=== PATIENT | male | born 1955 | race Caucasian/White ===

== ENCOUNTER 2020-04-30 13:58 | Outpatient (CLI) | payer BC, SELFPAY ==
[2020-04-30 14:38] LABS: Blood Urea Nitrogen 18 mg/dL (9-20); Calcium 8.9 mg/dL (8.4-10.2); Carbon Dioxide 28 mmol/L (22-30); Chloride 99 mmol/L (98-107); Estimated Glomerular Filt Rate > 60; Glucose 119 mg/dL (75-110); Potassium 4.3 mmol/L (3.4-5.0); Sodium 137 mmol/L (137-145)
== END 2020-04-30 13:59 | disposition home or self-care (01) ==
PROVIDERS: Anesthesiology; PCP Internal Medicine; Visit Provider Surgery
DX: E11.9 Type 2 diabetes mellitus without complications (principal)
CPT/HCPCS: 36415; 80048

== ENCOUNTER 2020-05-07 00:57 | Outpatient (CLI) | payer BC, SELFPAY ==
[2020-05-07 18:07] LABS: SARS-CoV-2 RNA PCR Negative
== END 2020-05-07 00:58 | disposition home or self-care (01) ==
LOC: ANHCOVIDDT 00:57
PROVIDERS: PCP Internal Medicine; Visit Provider Surgery
DX: Z01.812 Encounter for preprocedural laboratory examination (principal); Z11.59 Encounter for screening for other viral diseases
CPT/HCPCS: 87635; C9803; U0003

== ENCOUNTER 2020-05-09 01:39 | Day surgery (SDC) | payer BC, SELFPAY ==
[2020-04-29 14:31] VITALS: BMI 28.1
--- NOTE | 2020-05-09 09:39 | ECG_ITS ---
Measurements Intervals [place] Rate: 76 P: 51 [place]: 155 QRS: 53 QRSD: 99 T: 56 QT: 382 QTc: 430 Interpretive Statements SINUS RHYTHM INCOMPLETE RIGHT BUNDLE BRANCH BLOCK BORDERLINE ECG Electronically Signed On 05-09-2020 12:51:02 CDT by Frank Arredondo D.O.
--- NOTE | 2020-05-09 09:54 | WPDANESEPPF ---
Anes - Initial Pre Proc Eval Procedure: Operation Date: 05/09/20 11:30 Proposed Procedures p Open Right Inguinal Hernia Repair Adult - Mario Alberto Akhtar MD Date/Time: 05/09/20 09:54 Surgeon: Mario Alberto Akhtar MD Pre Op Diagnosis: Right Inguinal Hernia Patient Data Age: 64 Gender: M Height: 5 ft 7 in Weight: 81.65 kg Allergies Allergy/AdvReac Type Severity Reaction Status Date / Time No Known Allergies Allergy Verified 04/29/20 14:07 Home Medications Medication Instructions Recorded Confirmed Type aspirin 81 mg tablet,delayed 81 mg PO DAILY 10/02/19 04/29/20 History release blood-glucose meter #1 each 10/02/19 04/14/20 Rx citalopram 20 mg tablet 20 mg PO DAILY 10/02/19 04/29/20 History ezetimibe 10 mg tablet 10 mg PO DAILY 10/02/19 04/29/20 History fluticasone propionate 50 1 spray NASAL HS 10/02/19 04/29/20 History mcg/actuation nasal spray,suspension multivitamin 1 tablet PO DAILY 10/02/19 04/29/20 History rosuvastatin 40 mg tablet 40 mg PO DAILY 10/02/19 04/29/20 History fluticasone furoate 100 1 inhalation INHALATION DAILY #3 10/25/19 04/29/20 Rx mcg-vilanterol 25 mcg/dose each inhalation powder lancets 33 gauge #100 each 11/30/19 04/14/20 Rx empagliflozin 10 mg tablet 10 mg PO QAM #90 tablet 01/02/20 04/29/20 Rx alirocumab 75 mg/mL subcutaneous 75 mg SUB-Q Q14D #6 ml 02/04/20 04/29/20 Rx pen injector allopurinol 300 mg tablet 300 mg PO DAILY #90 tablet 03/03/20 04/29/20 Rx metoprolol succinate 25 mg 25 mg PO DAILY #90 tablet 03/03/20 04/29/20 Rx tablet,extended release 24 hr omeprazole 20 mg capsule,delayed 20 mg PO DAILY #90 cap 04/01/20 04/29/20 Rx release icosapent ethyl [Vascepa] 1 gm PO BID 04/29/20 04/29/20 History metformin 1,000 mg PO BID 04/29/20 04/29/20 History Patient hx anesthesia problems: none Family hx anesthesia problems: none [facility] Past Medical History Medical History ASHD (arteriosclerotic heart disease) Benign essential hypertension BMI 28.0-28.9,adult BMI 29.0-29.9,adult BMI 30.0-30.9,adult BMI 31.0-31.9,adult COPD (chronic obstructive pulmonary disease) Diabetes Elevated homocysteine Encounter for routine adult health examination with abnormal findings Encounter for routine adult health examination without abnormal findings Encounter for special screening examination for neoplasm of prostate Follow up Hyperlipidemia Labral tear of long head of left biceps tendon On long term care administrator drug therapy MICAH on CPAP Pre-diabetes Pyogenic granuloma Right groin pain Right inguinal hernia Rotator cuff tear arthropathy of left shoulder Vitamin D deficiency Surgical History Surgical History History of heart bypass surgery 4 in 1998 5 in 1982 S/P TAVR (transcatheter aortic valve replacement) Family History Family History Mother Carcinoma of colon Patient's mother is Father Acute myocardial infarction Patient's father is Other Diabetes mellitus Family history of cardiovascular disease Family history of heart disease in male family member before age 55 Social History Social History Smoking status: Never smoker Second hand tobacco smoke exposure: No Alcohol intake: current Drinks per week: 7 Spiritual care concerns: No Anes - Eval Final PreProcedure Day of Procedure 05/09/20 09:54 Patient weight: overweight Heart: regular rate and rhythm Lungs: clear to auscultation Airway: Mallampati scale class III Neurological: alert and oriented Last oral intake: >/= 8 hours ASA classification: III Emergent: no Anesthetic plan: proceed Anesthesia type and monitoring: general GIVS and standard monitoring Informed Consent: The patient's anesthetic plan and its attendant risks and benefits were
[2020-05-09] MEDS: LACTATED RINGERS 1,000 ML 30 ML IV CONT ×2 (10:20→13:30)
[2020-05-09 10:27] LABS: Glucose Point of Care 95 (65-105)
[2020-05-09] MEDS: ACETAMINOPHEN 500 MG TABLET 1000 MG PO (10:27)
[2020-05-09] MEDS: KETOROLAC 15 MG/ML VIAL (*BKC) IV PUSH (10:30)
[2020-05-09 10:34] VITALS: BP 137/71; PULSE 73; TEMP 36.7; O2SAT 98
--- NOTE | 2020-05-09 10:50 | WPDHPUPDATE1 ---
History and Physical Update Update Date/Time: 05/09/20 10:50 History and Physical has been reviewed, including an updated exam of the patient. There are NO changes in the patient's condition. Risks, benefits, and alternatives have been discussed and questions answered. Patient agrees to proceed with procedure.
[2020-05-09] MEDS: ceFAZolin 2 GM/D5W 50 ML 2 GM/50 ML BAG IVPB (10:55)
[2020-05-09 12:10] VITALS: BP 111/61; PULSE 76; RESP 12; TEMP 36.3; O2SAT 93
--- NOTE | 2020-05-09 12:13 | P.OP_ITS ---
Procedure Note - Detailed Date of procedure: 05/09/20 Pre-op diagnosis: Right Inguinal Hernia Right inguinal hernia Post-op diagnosis: other (Direct hernia) Procedure performed: Repair of Right inguinal hernia with 8 cm Parietex hernia mesh system Description of procedure: The patient was taken to surgery and IV sedation was administered. The right groin and genitalia were prepped and draped. Proposed incision was marked on the skin. Local was infiltrated into the skin and the deeper subcutaneous tissues. Incision was made and deepened through the subcutaneous. Crossing veins were cauterized and divided. Dissection was carried through Lorena's fascia down to the external oblique aponeurosis. The aponeurosis was exposed as was the external ring. Additional local anesthesia was infiltrated deep to the aponeurosis in the area of the spermatic cord and inguinal canal contents. The aponeurosis was opened laterally and extended medially through the external ring. The leaves of the aponeurosis were diss ected free from the spermatic cord. The ileoinguinal nerve was carefully preserved throughout the dissection and was left attached to the spermatic cord. The cord was then mobilized medially on a Glasco drain. The cord was dissected back to the internal ring. Dissection was then carried out the hernia sac from the cord. This was a direct hernia with a wide base. It occupied most of the direct space. It was dissected back to its neck. The hernia sac was scored through the transversalis fascia circumferentially just above the neck. The sac was dunked into the retroperitoneum. An 8 centimeter Parietex [place] was chosen. It was folded to form a plug. It was placed in the defect. The edges were sutured to the transversalis fascia with interrupted 3 0 Vicryl suture. The hernia defect was then partially closed with some additional 3 0 Vicryl suture. Patch was then cut to the appropriate size and placed over the inguinal canal floor. The lateral leaves were passed beyond the cord. The cord and ileoinguinal nerve were then laid over the patch. The external oblique aponeurosis was closed with interrupted 3 0 Vicryl suture. Lorena's fascia was closed with interrupted 3 0 Vicryl suture. The subcutaneous was closed with interrupted 4 0 Vicryl suture. Four 0 Vicryl subcuticular skin sutures were placed. The skin was closed finally with a running 4 0 Monocryl skin suture. The wound was dressed with Exofin surgical adhesive. The patient was awakened and taken to recovery in good condition. Sponge and needle counts were correct x2. Anesthesia: MAC and local (0.5% Marcaine with Exparel) Surgeon: Mario Alberto Akhtar MD Predator Control Trapper: Opal GILL Estimated blood loss (mL): 5 Drains: No Packing: No Pathology: none sent Complications: None Condition: stable Disposition: same day Findings: Direct inguinal hernia. No sliding hernia was noted.
[2020-05-09 12:40] VITALS: BP 124/67; PULSE 71; RESP 14
[2020-05-09 13:15] VITALS: BP 117/60; PULSE 70; RESP 14
[2020-05-09 13:45] VITALS: BP 124/58; PULSE 70; RESP 18
[2020-05-09 14:10] VITALS: BP 119/60; PULSE 66; RESP 18
[2020-05-09 17:02] LABS: Glucose Point of Care 100 (65-105)
== END 2020-05-09 14:26 | disposition home or self-care (01) ==
PROVIDERS: PCP Internal Medicine; Visit Provider Surgery
PROC: (CPT 49505; principal; 2020-05-09 11:30)
DX: K40.90 Unilateral inguinal hernia, without obstruction or gangrene, not specified as recurrent (principal); I25.10 Atherosclerotic heart disease of native coronary artery without angina pectoris; E78.5 Hyperlipidemia, unspecified; E11.9 Type 2 diabetes mellitus without complications; J44.9 Chronic obstructive pulmonary disease, unspecified; G47.33 Obstructive sleep apnea (adult) (pediatric); E55.9 Vitamin D deficiency, unspecified; Z79.84 Long term (current) use of oral hypoglycemic drugs; Z79.82 Long term (current) use of aspirin; Z95.1 Presence of aortocoronary bypass graft; Z95.4 Presence of other heart-valve replacement
CPT/HCPCS: 49505; 93005; A9270; C1781; C9290; J0690; J1885; J2250; J2704; J3010; J7120

== ENCOUNTER 2020-07-16 10:11 | Outpatient (CLI) | payer BC, SELFPAY ==
[2020-07-16 10:43] LABS: Anion Gap 8 mmol/L (8-16); Blood Urea Nitrogen 15 mg/dL (9-20); Calcium 9.5 mg/dL (8.4-10.2); Carbon Dioxide 29 mmol/L (22-30); Chloride 100 mmol/L (98-107); Estimated Glomerular Filt Rate > 60; Glucose 84 mg/dL (75-110); Potassium 4.5 mmol/L (3.4-5.0); Sodium 137 mmol/L (137-145)
== END 2020-07-16 10:12 | disposition home or self-care (01) ==
LOC: ANHSURGERY 10:12
PROVIDERS: Anesthesiology; PCP Internal Medicine; Visit Provider Orthopaedic Surgery
DX: R73.03 Prediabetes (principal); Z01.812 Encounter for preprocedural laboratory examination
CPT/HCPCS: 36415; 80048

== ENCOUNTER 2020-07-18 00:30 | Outpatient (CLI) | payer BC, SELFPAY ==
[2020-07-18 17:08] LABS: SARS-CoV-2 RNA PCR Negative
== END 2020-07-18 00:31 | disposition home or self-care (01) ==
LOC: ANHCOVIDDT 00:32
PROVIDERS: PCP Internal Medicine; Visit Provider Orthopaedic Surgery
DX: Z01.812 Encounter for preprocedural laboratory examination (principal); Z20.828 Contact with and (suspected) exposure to other viral communicable diseases
CPT/HCPCS: 87635; C9803; U0003

== ENCOUNTER 2020-07-21 01:47 | Day surgery (SDC) | payer BC, SELFPAY ==
[2020-07-15 13:38] VITALS: BMI 28.1
[2020-07-21] VITALS (13 sets, daily range): BP systolic 104–166; BP diastolic 64–88; PULSE 72–94; RESP 9–18; TEMP 36.2–36.3; O2SAT 91–98
--- NOTE | 2020-07-21 07:15 | WPDHPUPDATE1 ---
History and Physical Update Update Date/Time: 07/21/20 07:15 History and Physical has been reviewed, including an updated exam of the patient. There are NO changes in the patient's condition. Covid test negative. Risks, benefits, and alternatives have been discussed and questions answered. Patient agrees to proceed with procedure.
[2020-07-21] MEDS: KETOROLAC 15 MG/ML VIAL (*BKC) IV PUSH (07:58)
[2020-07-21] MEDS: ACETAMINOPHEN 500 MG TABLET 1000 MG PO (07:58)
[2020-07-21] MEDS: LACTATED RINGERS 1,000 ML 30 ML IV CONT (08:00)
[2020-07-21 08:30] LABS: Glucose Point of Care 111 (65-105)
--- NOTE | 2020-07-21 08:40 | WPDANESEPPF ---
Anes - Initial Pre Proc Eval Procedure: Operation Date: 07/21/20 09:30 Proposed Procedures p Left Shoulder Arthroscopy With Debridement, Rotator Cuff Repair, Bicep Repair, Open Distal Clavicle Excision, Possible Open Rotator Cuff Repair - Mohan Lesile MD Date/Time: 07/21/20 08:40 Surgeon: Mohan Leslie MD Pre Op Diagnosis: Left Rotator Cuff Tear/ Should Pain/Biceps Tendoni Patient Data Age: 64 Gender: M Height: 5 ft 7 in Weight: 81.65 kg Last Vital Signs Temp 36.2 C L 07/21/20 08:33 Pulse 76 07/21/20 08:33 Resp 18 07/21/20 08:33 BP 141/66 H 07/21/20 08:33 Pulse Ox 98 07/21/20 08:33 Allergies Allergy/AdvReac Type Severity Reaction Status Date / Time No Known Allergies Allergy Verified 07/21/20 08:32 Home Medications Medication Instructions Recorded Confirmed Type aspirin 81 mg tablet,delayed 81 mg PO DAILY 10/02/19 07/21/20 History release blood-glucose meter #1 each 10/02/19 07/21/20 Rx ezetimibe 10 mg tablet 10 mg PO DAILY 10/02/19 07/21/20 History multivitamin 1 tablet PO DAILY 10/02/19 07/21/20 History fluticasone furoate 100 1 inhalation INHALATION DAILY #3 10/25/19 07/21/20 Rx mcg-vilanterol 25 mcg/dose each inhalation powder lancets 33 gauge #100 each 11/30/19 07/21/20 Rx alirocumab 75 mg/mL subcutaneous 75 mg SUB-Q Q14D #6 ml 02/04/20 07/21/20 Rx pen injector allopurinol 300 mg tablet 300 mg PO DAILY #90 tablet 03/03/20 07/21/20 Rx metoprolol succinate 25 mg 25 mg PO DAILY #90 tablet 03/03/20 07/21/20 Rx tablet,extended release 24 hr omeprazole 20 mg capsule,delayed 20 mg PO DAILY #90 cap 04/01/20 07/21/20 Rx release Vascepa 1 gm PO BID 04/29/20 07/21/20 History metformin 1,000 mg PO BID 04/29/20 07/21/20 History citalopram 20 mg tablet 20 mg PO DAILY #90 tablet 06/05/20 07/21/20 Rx rosuvastatin 40 mg tablet 40 mg PO DAILY #90 tablet 06/05/20 07/21/20 Rx empagliflozin 10 mg tablet 10 mg PO QAM #90 tablet 07/09/20 07/21/20 Rx Laboratory Tests 07/21/20 08:05 POC Capillary Glucose 111 mg/dl H mg/dl (65-105) Patient hx anesthesia problems: none Family hx anesthesia problems: none PMFSH Past Medical History Medical History Acromioclavicular joint arthritis Arthritis ASHD (arteriosclerotic heart disease) Benign essential hypertension BMI 28.0-28.9,adult BMI 29.0-29.9,adult BMI 30.0-30.9,adult BMI 31.0-31.9,adult COPD (chronic obstructive pulmonary disease) Diabetes Elevated homocysteine Emphysema of lung Encounter for routine adult health examination with abnormal findings Encounter for routine adult health examination without abnormal findings Encounter for special screening examination for neoplasm of prostate Follow up Hearing loss High cholesterol Hyperlipidemia Hypertension Labral tear of long head of left biceps tendon On retirement drug therapy MICAH on CPAP Pre-diabetes Last A1C updated 05/06/20: 6.7 Pyogenic granuloma Right groin pain Right inguinal hernia Rotator cuff tear arthropathy of left shoulder Rotator cuff tear, left Sleep apnea Vitamin D deficiency Surgical History Surgical History History of heart bypass surgery 4 in 1998 5 in 1982 History of right inguinal hernia repair 05/09/20 S/P TAVR (transcatheter aortic valve replacement) Family History Family History Mother Carcinoma of colon Patient's mother is Father Acute myocardial infarction Patient's father is Other Diabetes mellitus Family history of cardiovascular disease Family history of heart disease in male family member before age 55 Social History Social History Smoking status: Never smoker Second hand tobacco smoke exposure: No Alcohol intake: current Drinks per week: 7 Spiritual care concer
--- NOTE | 2020-07-21 09:23 | WPDANESPNB ---
Anes - Peripheral Nerve Block Date/Time: 07/21/20 09:23 I have discussed with the patient/family/POA the placement of a peripheral nerve block for post-operative pain management, including associated risks, benefits, complications, and side effects. Alternative methods of post-operative analgesia were detailed. Questions were solicited and answers provided to the satisfaction of the patient/family/POA. Time-Out: A pre-procedural Time-Out was completed immediately before starting the procedure and confirmed: Patient Identification, Site, Procedure, Patient Position and the Availability of Requisite Equipment. Clinical Indications: Acute post-operative pain management requested by the operative surgeon. Nerve Block Insertion Note Anes-nerve block: interscalene left Patient position: supine Skin prep: chlorhexidine Needle: 22 gauge, stimulating, insulated echogenic needle. Needle length: 50 mm Technique: ultrasound Injectate: bupivacaine 0.5% with epi 5 mcg/ml (30) and dexamethasone (mg) (8) Observations: tolerated well Complications: none Procedure start time:: 909 Procedure end time:: 919
[2020-07-21] MEDS: ceFAZolin 2 GM/D5W 50 ML 2 GM/50 ML BAG IVPB (09:31)
--- NOTE | 2020-07-21 11:50 | PM.PROC ---
Procedure Note - Detailed Date of procedure: 07/21/20 Pre-op diagnosis: Left Rotator Cuff Tear/ Should Pain/Biceps Tendoni Post-op diagnosis: same Procedure performed: Left shoulder arthroscopy with debridement, biceps tenotomy, open distal clavicle excision and subacromial decompression. Description of procedure: Indications: Patient is a 64-year-old gentleman with left shoulder pain. Ultrasound shows rotator cuff tear, biceps tendinitis and degenerative changes. He has failed conservative care with physical therapy, home exercises, activity modification, injections and anti-inflammatory medication. He presents for operative treatment. What was done: Patient identified in the preoperative holding. Informed consent given. Operative extremity marked. Patient received intravenous antibiotics. Patient brought to the operating room where underwent general anesthetic by anesthesia team. Positioned [place] chair on operating room table. care was taken to secure the head and neck and properly pad the bony prominences. Time-out performed confirming the patient, site of the surgery and the plan. Left shoulder then prepped and draped usual sterile surgical fashion using a ChloraPrep skin solution. Standard posterior shoulder arthroscopy portal made with 11 blade knife. Blunt penetration of the capsule and the camera cannula and inflow were started. Shoulder joint was inspected. There was a near complete tear of the biceps tendon. Rotator cuff was noted to be intact. The rim in of the generative changes of the glenohumeral joint. There was some extensive synovitis around the glenoid labrum. Anterior working portal was established but using a 18 gauge spinal needle for positioning followed by 11 blade knife to incise the skin and blunt penetration of the capsule. 4.0 mm shaver was introduced and a biceps tenotomy was performed. Debridement of the remainder of the biceps tendon anchor on the labrum was then performed. Removal of the inflammatory synovial tissue was. Arthroscopic Wand was then introduced bleeding points were coagulated. Irrigation was then run through the shoulder joint and suctioned out. Instruments were then removed and the portals were closed with 3 Monocryl interrupted suture. Steri-Strips were placed over the skin. Longitudinal incision was then made starting at the acromioclavicular joint extending anteriorly laterally. Fascia was incised in line with skin incision. Bleeding controlled with electrocautery. The capsule over the acromioclavicular joint was then incised in line with skin incision. Distal clavicle was exposed. There was noted to be moderate to severe degenerative changes of the joint. Sagittal saw was then used to resect the distal aspect of the clavicle, approximately 2 to 3 mm. Ends were smoothed with a rongeur. This was thoroughly irrigated and suctioned out. Capsule repaired with 0 Vicryl interrupted suture. Deltoid was then elevated off of the anterolateral acromion. The anterior edge was then resected with a rongeur. The undersurface of the acromion was then resected with a sagittal saw and smoothed with a rasp and rongeur. Subacromial bursa was excised with a rongeur and Bovie cautery as well. Rotator cuff was then inspected and noted to be intact. Wounds thoroughly irrigated with antibiotic solution. The deltoid was repaired over the acromion with 2. FiberWire. Fascia was repaired with 0 Vicryl interrupted suture. Subcutaneous tissue repaired with 2 Vicryl interrupted suture and skin repaired with 3 0 Monocryl running subcuticular stitch and Steri-Strips. Sterile dressing applied. Patient was then awoke from anesthesia extubated and taken to the recovery room in stable condition. All sponge, needle, instrument counts were correct at the end of the case. Anesthesia: GETA Surgeon: Mohan Leslie MD Chart Calculator: periodontal assistant Estimated blood loss (mL): 50 Drains: No Packing: No Pathology: none sent Compli
[2020-07-21 11:51] LABS: Glucose Point of Care 146 (65-105)
== END 2020-07-21 14:12 | disposition home or self-care (01) ==
PROVIDERS: PCP Internal Medicine; Visit Provider Orthopaedic Surgery
PROC: (CPT 29805; principal; 2020-07-21 09:30)
DX: M75.122 Complete rotator cuff tear or rupture of left shoulder, not specified as traumatic (principal); M75.82 Other shoulder lesions, left shoulder; M75.22 Bicipital tendinitis, left shoulder; M65.812 Other synovitis and tenosynovitis, left shoulder; G89.18 Other acute postprocedural pain; I25.10 Atherosclerotic heart disease of native coronary artery without angina pectoris; I10 Essential (primary) hypertension; J44.9 Chronic obstructive pulmonary disease, unspecified; E78.5 Hyperlipidemia, unspecified; G47.33 Obstructive sleep apnea (adult) (pediatric); R73.03 Prediabetes; E55.9 Vitamin D deficiency, unspecified; Z95.1 Presence of aortocoronary bypass graft
CPT/HCPCS: 29827; 23120; 29823; 64415; A4565; A9270; J0690; J1100; J1885; J2001; J2250; J2370; J2405; J2704; J3010; J7120

== ENCOUNTER 2021-05-18 09:59 | Outpatient (CLI) | payer BC, SELFPAY ==
--- NOTE | ~2021-05-18 | CT_ITS ---
EXAMINATION: CT brain wo/w con DATE: 05/18/2021 10:45 INDICATION: Nasal congestion. Headache. TECHNIQUE: Computed tomography (CT) of the head was performed without and subsequently with 100 cc Om nipaque 350 intravenous contrast. The mA was adjusted according to patient size. Iterative reconstruc tion technique was employed. Exam dose: 1513.33 mGy-cm total exam DLP. COMPARISON: None FINDINGS: There are bilateral carotid siphon internal carotid artery calcifications. Nonspecific dimi nished attenuation cerebral white matter, likely due to chronic small vessel ischemic changes. No intracranial mass lesion or hemorrhage or cerebrovascular accident is evident. No midline shift or mass effect effect. No subdural or epidural hematoma is detected. Normal ventricular size. Patchy areas of soft tissue opacification of the ethmoid air cells and mucoperiosteal thickening of t he maxillary sinuses. The mastoid air cells are normally developed and aerated. No fracture or bone destruction of the cranial vault. IMPRESSION: Cerebral atherosclerosis and chronic small vessel ischemic changes of the white matter No acute intracranial finding Bilateral ethmoid and maxillary sinus disease Reviewed, dictated and finalized at [facility]. Reviewed, dictated and finalized at [facility].
--- NOTE | ~2021-05-18 | CT_ITS ---
EXAMINATION: CT sinus wo con DATE: 05/18/2021 10:45 INDICATION: Nasal congestion. Headache. TECHNIQUE: Computed tomography (CT) of the paranasal sinuses was performed without contrast. Iterativ e reconstruction technique was employed. Exam dose: 0.00 mGy-cm total exam DLP. COMPARISON: None FINDINGS: There is rightward deviation of the nasal septum. Prominent zhou bullosa of the left middle nasal turbinate. There is soft tissue swelling of the kait al turbinates, most prominent at the left inferior nasal turbinate. There is mild soft tissue thickening at the left infundibulum and prominent soft tissue thickening at the right maxillary ostium and right infundibulum and right ethmoid bulla. There is soft tissue thickening at both frontoethmoid area is and prominent patchy opacification of e thmoid air cells bilaterally. There is mild mucoperiosteal thickening of both maxillary sinuses. The sphenoid sinuses are unremarka ble. The mastoid air cells are normally developed and aerated. Middle and inner ear apparatus appear oscar l. IMPRESSION: Rightward deviation of nasal septum Prominent zhou bullosa of left middle nasal turbinate Soft tissue swelling of the nasal turbinates, especially left inferior Soft tissue thickening at the infundibulum, right greater than left Focal soft tissue thickening of the frontoethmoid area of Prominent patchy soft tissue thickening of the ethmoid air cells bilaterally Bilateral mild maxillary sinus soft tissue thickening Reviewed, dictated and finalized at [facility]. Reviewed, dictated and finalized at [facility].
[2021-05-18 10:52] LABS: Anion Gap 7 mmol/L (8-16); Blood Urea Nitrogen 12 mg/dL (9-20); Calcium 9.4 mg/dL (8.4-10.2); Carbon Dioxide 31 mmol/L (22-30); Chloride 101 mmol/L (98-107); Estimated Glomerular Filt Rate > 60; Glucose 96 mg/dL (65-110); Potassium 4.6 mmol/L (3.4-5.0); Sodium 139 mmol/L (137-145)
[2021-05-18 11:07] LABS: Basophils Percent Auto 0.3 % (0.2-1.2); Eosinophils Absolute Auto 0.3 K/mm3 (0-0.3); Eosinophils Percent Auto 4.4 % (0-4.4); Hematocrit 40.2 % (42.0-52.0); Hemoglobin 12.8 g/dL (14.0-18.0); Immature Granulocyte Absolute 0.02 K/mm3 (0.00-0.031); Immature Granulocyte Percent A 0.3 % (0-0.5); Lymphocytes Absolute Auto 1.54 K/mm3 (0.9-3.2); Lymphocytes Percent Auto 23.3 % (18.3-44.2); Mean Corpuscular HGB Conc 31.8 g/dl (32-36); Mean Platelet Volume 8.5 fl (7.4-10.4); Monocytes Absolute Auto 0.6 K/mm3 (0.1-0.6); Monocytes Percent Auto 9.1 % (2.6-8.5); Neutrophils Absolute Auto 4.1 K/mm3 (1.3-6.7); Neutrophils Percent Auto 62.6 % (45.5-73.1); Platelet Count Result 280 k/mm3 (150-375); Red Blood Count 4.42 M/mm3 (4.6-6.20); Red Cell Distribution Width 13.4 % (11.5-14.5); White Blood Count 6.6 K/mm3 (4.5-10.0)
== END 2021-05-18 10:00 | disposition home or self-care (01) ==
LOC: ANHIMG 10:00
PROVIDERS: PCP Internal Medicine; Visit Provider Internal Medicine
DX: H05.229 Edema of unspecified orbit (principal); H57.12 Ocular pain, left eye; J01.10 Acute frontal sinusitis, unspecified; R09.81 Nasal congestion; Z79.899 Other long term (current) drug therapy; J34.2 Deviated nasal septum; J34.89 Other specified disorders of nose and nasal sinuses; J34.3 Hypertrophy of nasal turbinates
CPT/HCPCS: 36415; 70470; 70486; 80048; 85025; Q9967

== ENCOUNTER 2021-06-11 02:37 | Day surgery (SDC) | payer BC, SELFPAY ==
[2021-05-28 14:13] VITALS: BMI 28.6
[2021-06-11 09:12] VITALS: BP 150/64; PULSE 78; RESP 20; TEMP 36.3; O2SAT 97; BMI 28.5
[2021-06-11] MEDS: LACTATED RINGERS 1,000 ML 150 ML IV CONT (09:31)
[2021-06-11] MEDS: GENTAMICIN 80MG/SOD CHL 50 ML 80 MG/50 ML BAG 100 MG IVPB (09:33)
--- NOTE | 2021-06-11 09:36 | WPDANESEPPF ---
Anes - Initial Pre Proc Eval Procedure: Operation Date: 06/11/21 10:15 Proposed Procedures p Esophagogastroduodenoscopy & Screening Colonoscopy - Clinton Pelayo MD Date/Time: 06/11/21 09:36 Surgeon: Clinton Pelayo MD Pre Op Diagnosis: family hx of colon ca, iron deficiency anemia Patient Data Age: 65 Gender: M Height: 1.7 m Weight: 82.5 kg Last Vital Signs Temp 36.3 C L 06/11/21 09:12 Pulse 78 06/11/21 09:12 Resp 20 06/11/21 09:12 BP 150/64 H 06/11/21 09:12 Pulse Ox 97 06/11/21 09:12 Allergies Allergy/AdvReac Type Severity Reaction Status Date / Time No Known Allergies Allergy Verified 06/11/21 09:11 Home Medications Medication Instructions Recorded Confirmed Type aspirin 81 mg tablet,delayed 81 mg PO DAILY 10/02/19 05/28/21 History release blood-glucose meter #1 each 10/02/19 05/26/21 Rx multivitamin 1 tablet PO DAILY 10/02/19 05/28/21 History lancets 33 gauge #100 each 11/30/19 05/26/21 Rx empagliflozin 10 mg tablet 10 mg PO QAM #90 tablet 07/09/20 05/28/21 Rx allopurinol 100 mg tablet 100 mg PO DAILY #90 tablet 08/11/20 05/28/21 Rx metformin 1,000 mg tablet 1,000 mg PO BID #180 tablet 09/03/20 05/28/21 Rx fluticasone furoate 100 See Rx Instructions .ROUTE 10/20/20 05/28/21 Rx mcg-vilanterol 25 mcg/dose .COMPLEX #180 ea inhalation powder evolocumab 140 mg/mL subcutaneous 140 mg SUBCUT .every 2 weeks #6 ml 10/29/20 05/28/21 Rx pen injector icosapent ethyl 1 gram capsule See Rx Instructions .ROUTE 12/08/20 05/28/21 Rx .COMPLEX #360 capsule omeprazole 20 mg capsule,delayed See Rx Instructions .ROUTE 03/27/21 05/28/21 Rx release .COMPLEX #90 cap metoprolol succinate 25 mg See Rx Instructions .ROUTE 05/25/21 05/28/21 Rx tablet,extended release 24 hr .COMPLEX #90 tablet ferrous sulfate [FeroSul] 325 mg PO DAILY 05/28/21 05/28/21 History citalopram 20 mg tablet See Rx Instructions .ROUTE 06/01/21 Rx .COMPLEX #90 tablet rosuvastatin 40 mg tablet See Rx Instructions .ROUTE 06/01/21 Rx .COMPLEX #90 tablet Patient hx anesthesia problems: none Family hx anesthesia problems: none PMFSH Past Medical History Medical History Acromioclavicular joint arthritis Arthritis ASHD (arteriosclerotic heart disease) Benign essential hypertension BMI 28.0-28.9,adult BMI 29.0-29.9,adult BMI 30.0-30.9,adult BMI 31.0-31.9,adult COPD (chronic obstructive pulmonary disease) Depression Diabetes Elevated homocysteine Emphysema of lung Encounter for routine adult health examination with abnormal findings Encounter for routine adult health examination without abnormal findings Encounter for special screening examination for neoplasm of prostate Family history of colon cancer Follow up GERD (gastroesophageal reflux disease) Gout Hearing loss High cholesterol History of colon polyps Hyperlipidemia Hypertension Iron deficiency Labral tear of long head of left biceps tendon Need for COVID-19 vaccine Need for second dose of COVID-19 vaccine On longterm drug therapy Orbital swelling MICAH on CPAP Otitis Pain of left orbit Pre-diabetes Last A1C updated 05/06/20: 6.7 Pyogenic granuloma Right inguinal hernia Right-sided face pain Rotator cuff tear arthropathy of left shoulder Rotator cuff tear, left Sinus congestion Sinus drainage Sinusitis Sleep apnea Vitamin D deficiency Surgical History Surgical History History of heart bypass surgery 4 in 1998 5 in 1982 History of right inguinal hernia repair 05/09/20 S/P TAVR (transcatheter aortic valve replacement) Family History Family History Mother Carcinoma of colon Patient's mother is Father Acute myocardial infarction Patient's father is Other Diabetes mellitus Family history of cardiovascular disease Family history of heart disease
[2021-06-11 09:40] LABS: Glucose Point of Care 132 mg/dl (65-105)
--- NOTE | 2021-06-11 09:41 | WPDGICN ---
Assessment and Plan Assessment and plan (1) Family history of colon cancer: Code(s): Z80.0 - Family history of malignant neoplasm of digestive organs Status: Acute Assessment and Plan: Patient's mother had colon cancer therefore recommend colonoscopy at 5 year intervals. This report follows separately. (2) History of colon polyps: Code(s): Z86.010 - Personal history of colonic polyps Status: Acute Assessment and Plan: Patient has had colon polyps in the past. Plan is for surveillance colonoscopy at least every 5 years. A slight decline in hemoglobin is noted precipitating request for investigation at this time. Will continue to monitor closely subsequently further recommendations will be given after endoscopy. GI Consult Note Consult date/time: 06/11/21 09:41 HPI: Elver Escudero is a 65 year old male Presents for colonoscopy. Patient states that his current weight appetite bowel movements are normal. Family history is significant his mother had colon cancer. Patient himself has had colon polyps in the past. He states his bowel habits are normal. He has had no blood in his stools. Recent hemoglobin is slightly decline from previous exams but a only mildly so. Screening colonoscopy has been recommended. Review of Systems Review of Systems: All systems reviewed & are unremarkable except as noted in HPI and below PMFSH Past Medical History Medical History Acromioclavicular joint arthritis Arthritis ASHD (arteriosclerotic heart disease) Benign essential hypertension BMI 28.0-28.9,adult BMI 29.0-29.9,adult BMI 30.0-30.9,adult BMI 31.0-31.9,adult COPD (chronic obstructive pulmonary disease) Depression Diabetes Elevated homocysteine Emphysema of lung Encounter for routine adult health examination with abnormal findings Encounter for routine adult health examination without abnormal findings Encounter for special screening examination for neoplasm of prostate Family history of colon cancer Follow up GERD (gastroesophageal reflux disease) Gout Hearing loss High cholesterol History of colon polyps Hyperlipidemia Hypertension Iron deficiency Labral tear of long head of left biceps tendon Need for COVID-19 vaccine Need for second dose of COVID-19 vaccine On [facility] drug therapy Orbital swelling MICAH on CPAP Otitis Pain of left orbit Pre-diabetes Last A1C updated 05/06/20: 6.7 Pyogenic granuloma Right inguinal hernia Right-sided face pain Rotator cuff tear arthropathy of left shoulder Rotator cuff tear, left Sinus congestion Sinus drainage Sinusitis Sleep apnea Vitamin D deficiency Surgical History Surgical History History of heart bypass surgery 4 in 1998 5 in 1982 History of right inguinal hernia repair 05/09/20 S/P TAVR (transcatheter aortic valve replacement) Family History Family History Mother Carcinoma of colon Patient's mother is Father Acute myocardial infarction Patient's father is Other Diabetes mellitus Family history of cardiovascular disease Family history of heart disease in male family member before age 55 Social History Social History Smoking status: Never smoker Second hand tobacco smoke exposure: No Alcohol intake: current Drinks per week: 7 Substance use: never Substance use type: does not use Living arrangements: with family Spiritual care concerns: No Meds Home Medications and Allergies Home Medications Medication Instructions Recorded Confirmed Type aspirin 81 mg tablet,delayed 81 mg PO DAILY 10/02/19 05/28/21 History release blood-glucose meter #1 each 10/02/19 05/26/21 Rx multivitamin 1 tablet PO DAILY 10/02/19 05/28/21 History lancets 33 gauge #100 each
[2021-06-11] MEDS: AMPICILLIN 2 GM/NS 100 ML 2 GM/100 ML BAG IVPB (10:05)
[2021-06-11 10:41] VITALS: BP 147/82; PULSE 74; RESP 24; O2SAT 97
[2021-06-11 10:51] VITALS: BP 145/77; PULSE 73; RESP 22; O2SAT 96
[2021-06-11 11:01] VITALS: BP 111/70; PULSE 70; RESP 22; O2SAT 97
== END 2021-06-11 11:19 | disposition home or self-care (01) ==
PROVIDERS: PCP Internal Medicine; Visit Provider Internal Medicine Gastroenterology
PROC: 0DJ08ZZ Inspection of Upper Intestinal Tract, Via Natural or Artificial Opening Endoscopic (ICD-10-PCS; CPT 43235; principal; 2021-06-11 10:15)
DX: Z12.11 Encounter for screening for malignant neoplasm of colon (principal); D64.9 Anemia, unspecified; D12.2 Benign neoplasm of ascending colon; K57.30 Diverticulosis of large intestine without perforation or abscess without bleeding; K64.8 Other hemorrhoids; Z80.0 Family history of malignant neoplasm of digestive organs; I25.10 Atherosclerotic heart disease of native coronary artery without angina pectoris; J44.9 Chronic obstructive pulmonary disease, unspecified; E11.9 Type 2 diabetes mellitus without complications; F32.9 Major depressive disorder, single episode, unspecified; K21.9 Gastro-esophageal reflux disease without esophagitis; M10.9 Gout, unspecified; E78.00 Pure hypercholesterolemia, unspecified; E78.5 Hyperlipidemia, unspecified; I10 Essential (primary) hypertension; E61.1 Iron deficiency; G47.33 Obstructive sleep apnea (adult) (pediatric); E55.9 Vitamin D deficiency, unspecified; Z95.1 Presence of aortocoronary bypass graft; Z79.4 Long term (current) use of insulin; Z79.82 Long term (current) use of aspirin; Z79.84 Long term (current) use of oral hypoglycemic drugs
CPT/HCPCS: 43235; 45385; 82948; 88305; J0290; J1580; J2001; J2704; J7120